=== PATIENT | female | born 2005 | race African-American/Black ===

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

== ENCOUNTER → 2024-07-18 | Outpatient (REF) | payer OTHER, BC ==
[~2024-07-18] MED LIST: BENZ1TAB5 PO; DEPA250T2 PO; HALO5TAB33 PO; LAMI25TA PO; OLAN7.5T8 PO; PARO20TA3 PO; PARO20TA4 PO; PROP10TA56 PO
[2024-07-18 15:48] LABS: GC DNA AMPLIFICATION NEGATIVE (NEGATIVE)
[2024-07-18 16:29] LABS: Trichomonas vaginalis (AMP) NOT DETECTED (NEGATIVE)
== END ==
LOC: M LAB REF 12:38
PROVIDERS: ATTEND Physician Assistant
DX: N30.01 Acute cystitis with hematuria (principal)